=== PATIENT | male | born 1990 | race African-American/Black ===

== ENCOUNTER 2020-11-24 17:44 | Emergency (ER) | payer SELFPAY ==
[~2020-11-24] VITALS: Ht 177.8 cm; Wt 100.0 kg
[2020-11-24 19:29] VITALS: BP 153/95
[2020-11-24] MEDS ORDERED: metroNIDAZOLE 500 MG TABLET PO ONE (19:45)
[2020-11-24] MEDS ORDERED: AZITHROMYCIN 250 MG TABLET. PO ONE (19:45)
[2020-11-24] MEDS ORDERED: cefTRIAXone IM 250 MG VIAL IM ONE (19:45)
--- NOTE | 2020-11-24 19:59 | PHYS DOC ---
General Adult EDM: Chief Complaint: SEXUALLY TRANSMITTED DISEASE HPI: HPI: Patient is a 30 year old male who presents to the ED today complaining of penile discharge for couple days, patient is concerned about STDs, would like to be treated. (KAYLEE POP APRN) Review of Systems: Review of Systems: Constitutional: Denies fever or chills. [] Cardiovascular: Denies chest pain or edema. [] GI: Denies abdominal pain, nausea, vomiting, bloody stools or diarrhea. [] : Reports penile discharge, denies dysuria Musculoskeletal: Denies back pain or joint pain. [] Integument: Denies rash. [] Neurologic: Denies headache, focal weakness or sensory changes. [] Psychiatric: Denies depression or anxiety. [] (KAYLEE POP APRN) Heart Score: Risk Factors: Risk Factors: DM, Current or recent (<one month) smoker, HTN, HLP, family history of CAD, obesity. Risk Scores: Score 0 - 3: 2.5% MACE over next 6 weeks - Discharge Home Score 4 - 6: 20.3% MACE over next 6 weeks - Admit for Clinical Observation Score 7 - 10: 72.7% MACE over next 6 weeks - Early Invasive Strategies (KAYLEE POP APRN) Current Medications: Current Medications Medications (Trade) Dose Ordered Sig/Latisha Start Time Stop Time Status Last Admin Dose Admin Azithromycin (Zithromax) 1,000 mg 1X ONCE 11/24/20 19:45 11/24/20 19:49 DC Ceftriaxone Sodium (Rocephin Im) 500 mg 1X ONCE 11/24/20 19:45 11/24/20 19:49 DC Metronidazole (Flagyl) 2,000 mg 1X ONCE 11/24/20 19:45 11/24/20 19:49 DC (KAYLEE POP APRN) Allergies: Allergies: Allergies Coded Allergies Type Severity Reaction Last Updated Verified No Known Drug Allergies 11/24/20 No (KAYLEE POP APRN) Physical Exam: PE: Constitutional: Well developed, well nourished, no acute distress, non-toxic appearance. [] HENT: Normocephalic, atraumatic, bilateral external ears normal, oropharynx moist, no oral exudates, nose normal. [] Eyes: PERRLA, EOMI, conjunctiva normal, no discharge. [] Neck: Normal range of motion, no tenderness, supple, no stridor. [] Cardiovascular:Heart rate regular rhythm, no murmur [] Lungs & Thorax: Bilateral breath sounds clear to auscultation [] Abdomen: Bowel sounds normal, soft, no tenderness, no masses, no pulsatile masses. [] Skin: Warm, dry, no erythema, no rash. [] Back: No tenderness, no CVA tenderness. [] Extremities: No tenderness, no cyanosis, no clubbing, ROM intact, no edema. [] Neurologic: Alert and oriented X 3, normal motor function, normal sensory function, no focal deficits noted. [] Psychologic: Affect normal, judgement normal, mood normal. [] (KAYLEE POP APRN) EKG: EKG: [] (KAYLEE POP APRN) Radiology/Procedures: Radiology/Procedures: [] (KAYLEE POP APRN) Course & Med Decision Making: Course & Med Decision Making Pertinent Labs and Imaging studies reviewed. (See chart for details) This is a 30-year-old male patient presenting to the ED today with penile discharge, patient would like to be treated for STDs. Was given standard STD treatment and discharge to home. Education provided for STD (KAYLEE POP APRN) Dragon Disclaimer: Dragon Disclaimer: This electronic medical record was generated, in whole or in part, using a voice recognition dictation system. (KAYLEE POP APRN) Departure Departure Impression: Primary Impression: Concern about STD in male without diagnosis Disposition: 01 DC HOME SELF CARE/HOMELESS Condition: STABLE Referrals: NO PCP (PCP) follow up with your doctor in one week or the health department Patient Instructions: Sexually Transmitted Disease, [id number] Additional Instructions: You were evaluated for STD, you are treated, use protection at all times. Follow-up with your doctor in 1 to 2 weeks patient will contact to the partners and let them know you were treated for STDs and ask them to seek treatment too Attending Signature Attending Signature I have reviewed the PA/HOME AID's note and plan of care. I was available for consultation as needed during the patient's visit in the emergency department. I agree with the clinical impression, plan, and disposition. (LEONARD SHEPHERD DO) KAYLEE POP APRN Nov 24, 2020 19:59 LEONARD SHEPHERD DO Nov 24, 2020 22:31
== END 2020-11-24 20:30 | disposition home or self-care (01) ==
LOC: ER 17:44
DX: N48.89 Other specified disorders of penis (principal); Z20.2 Contact with and (suspected) exposure to infections with a predominantly sexual mode of transmission
CPT/HCPCS: 96372; 99283; J0696